=== PATIENT | female | born 1985 | race Caucasian/White ===

== ENCOUNTER 2023-03-29 09:37 | Outpatient (CLI) | payer BC | END 2023-03-29 09:38 | disposition home or self-care (01) | LOC: CSHMAMMO 09:37 | PROVIDERS: ATTEND Family Medicine | DX: N91.2 Amenorrhea, unspecified (principal); R63.6 Underweight; M85.80 Other specified disorders of bone density and structure, unspecified site | CPT/HCPCS: 77080 ==